=== PATIENT | female | born 1965 | race Native Hawaiian/Other Pacific Islander ===

== ENCOUNTER 2018-01-04 15:58 | Emergency (ER) | payer OTHER ==
[~2018-01-04] VITALS: Ht 157.5 cm; Wt 81.6 kg
[2018-01-04 17:08] LABS: PLATELET COUNT 148 K/uL (152-353)
[2018-01-04 17:10] LABS: POTASSIUM 3.8 mmol/L (3.6-5.2)
[2018-01-04 17:26] LABS: PARTIAL THROMBOPLASTIN TIME 26.6 SECONDS (24.5-33.6)
[2018-01-04] MEDS ORDERED: BENZ1TAB43 PO (17:39)
[2018-01-04] MEDS ORDERED: CARV12.5 PO (17:43)
[2018-01-04] MEDS ORDERED: DIVA500T2 PO (17:44)
[2018-01-04] MEDS ORDERED: AMLODIPINE BESYLATE PO (17:46)
[2018-01-04] MEDS ORDERED: OLANZAPINE20 M1 PO (17:52)
[2018-01-04] MEDS ORDERED: SERT100T PO (17:53)
== END 2018-01-04 17:46 | disposition other institution (70) ==
LOC: ED 15:58
DX: Z04.6 Encounter for general psychiatric examination, requested by authority (principal); F03.90 Unspecified dementia, unspecified severity, without behavioral disturbance, psychotic disturbance, mood disturbance, and anxiety; R41.82 Altered mental status, unspecified; I45.81 Long QT syndrome
CPT/HCPCS: 36415; 80053; 80164; 80307; 81000; 83735; 84443; 85027; 85610; 85730; 93005; 99285; J3486

== ENCOUNTER 2018-03-07 01:17 | Emergency (ER) | payer OTHER ==
[~2018-03-07] VITALS: Ht 160 cm; Wt 81.6 kg
[2018-03-07 01:05] VITALS: BP 132/85; TEMP 98.6
[~2018-03-07 01:17] MED LIST: AMLODIPINE BESYLATE PO; BENZ1TAB43 PO; CARV12.5 PO; DIVA500T2 PO; OLANZAPINE20 M1 PO; SERT100T PO
[2018-03-07 02:09] LABS: PLATELET COUNT 205 K/uL (152-353)
[2018-03-07] MEDS ORDERED: MULTIVITAMI1 PO (04:57)
[2018-03-07] MEDS ORDERED: BENZ1TAB43 PO (04:58)
[2018-03-07] MEDS ORDERED: TRAZ100T PO (05:11)
[2018-03-07] MEDS ORDERED: ZINC220 MG PO (05:12)
[2018-03-07] MEDS ORDERED: ASCO500T18 PO (05:12)
[2018-03-07] MEDS ORDERED: PANTOPRAZOLE 40MG TA PO (05:13)
[2018-03-21] MEDS ORDERED: RISP1TAB PO (13:52)
[2018-03-21] MEDS ORDERED: TRAZ50TA36 PO (13:52)
[2018-03-21] MEDS ORDERED: RISP50IN IM (13:52)
[2018-03-21] MEDS ORDERED: DIVA500T2 PO (13:52)
[2018-03-21] MEDS ORDERED: DIVALPROEX250 MG PO (13:52)
[2018-03-21] MEDS ORDERED: ZIPR20CA PO (13:52)
[2018-03-21] MEDS ORDERED: SERT100T PO ×2 (13:52→13:56)
== END 2018-03-07 02:44 | disposition other institution (70) ==
LOC: ED 01:17
DX: Z04.6 Encounter for general psychiatric examination, requested by authority (principal); F20.89 Other schizophrenia
CPT/HCPCS: 36415; 80053; 81000; 85027; 93005; 99285